=== PATIENT | female | born 1980 | race American Indian/Alaskan Native ===

== ENCOUNTER 2018-07-23 13:38 | Emergency (ER) | payer BC ==
[2018-07-23 13:43] VITALS: RESP 18; BMI 31.1
--- NOTE | 2018-07-23 13:56 | ED PDOC ---
Arrival/HPI - General Chief Complaint: Headache Historian: Patient, Other (Boyfriend) - History of Present Illness Time/Duration: Other (This morning) Symptom Course: Unchanged Quality: Aching, Pressure Severity Level: Severe Activities at Onset: Sleeping Associated Symptoms (Text): 07/23/18 13:54 Patient woke up from sleep this morning complaining of a bilateral frontal headache along with nausea and numbness in her right index middle and ring finger. Head trauma. No neck pain. There is photophobia and nausea. No weakness. She has never experienced this previously. No cough congestion or URI. No abdominal pain vomiting or diarrhea. No chest pain or palpitations. She took 2 Tylenol with no improvement. Family/Social History - Physician Review Nursing Documentation Reviewed: Yes Family/Social History: Unknown Family HX Smoking Status: Never Smoked Hx Alcohol Use: No Hx Substance Use: Yes (Marijuana) Allergies/Home Meds Allergies/Adverse Reactions: Allergies No Known Allergies Allergy (Verified 07/23/18 13:48) Home Medications: Home Meds Medication Instructions Recorded Confirmed Levothyroxine Sodium [Levoxyl] 25 mcg PO DAILY 07/23/18 07/23/18 Review of Systems - Physician Review All systems were reviewed & negative as marked: Yes - Review of Systems Constitutional: absent: Fatigue, Fevers Eyes: Photophobia. absent: Vision Changes, Eye Pain Respiratory: absent: SOB, Cough, Wheezing Cardiovascular: absent: Chest Pain, Palpitations, Syncope Gastrointestinal: Nausea. absent: Abdominal Pain, Vomiting Neurological: Headache. absent: Dizziness, Focal Weakness, Gait Changes, Speech Changes, Seizure Physical Exam Vital Signs Temp Pulse Resp BP Pulse Ox 07/23/18 13:42 98.2 F 74 18 118/89 98 Temperature: Afebrile Blood Pressure: Normal Pulse: Regular Respiratory Rate: Normal Appearance: Positive for: Well-Appearing, Non-Toxic, Uncomfortable Pain Distress: Moderate Mental Status: Positive for: Alert and Oriented X 3 - Systems Exam Head: Present: Atraumatic, Normocephalic Pupils: Present: PERRL Extroacular Muscles: Present: EOMI Ears: Present: NORMAL TM, Normal Canal. No: Erythema, TM Bulging Mouth: Present: Moist Mucous Membranes Pharnyx: No: ERYTHEMA, EXUDATE, TONSILS ENLARGED Neck: Present: Normal Range of Motion. No: Meningeal Signs, MIDLINE TENDERNESS, Paraspinal Tenderness Respiratory/Chest: Present: Clear to Auscultation, Good Air Exchange. No: Respi ratory Distress, Accessory Muscle Use Cardiovascular: Present: Regular Rate and Rhythm, Normal S1, S2. No: Murmurs Abdomen: No: Tenderness, Distention, Peritoneal Signs, Rebound, Guarding Upper Extremity: Present: Normal Inspection. No: Cyanosis, Edema Lower Extremity: Present: Normal Inspection. No: Edema Neurological: Present: GCS=15, CN II-XII Intact, Speech Normal, Motor Func Grossly Intact, Normal Sensory Function, Normal Cerebellar Funct, Gait Normal Skin: Present: Warm, Dry, Normal Color. No: Rashes Psychiatric: Present: Alert, Oriented x 3, Normal Insight, Normal Concentration Medical Decision Making ED Course and Treatment: 07/23/18 15:55 Symptoms markedly improved. We'll discharge home accompanied by her boyfriend to follow-up with PMD. Follow up in ER as needed. - RAD Interpretation Radiology Orders: CT scan of the head as read by the radiologist shows no acute findings. Disaster Director: Radiologist Disposition/Present on Arrival - Present on Arrival Any Indicators Present on Arrival: No History of DVT/PE: No History of Uncontrolled Diabetes: No Urinary Catheter: No History of Decub. Ulcer: No - Disposition Have Diagnosis and Disposition been Completed?: Yes Diagnosis: Headache Disposition: HOME/ ROUTINE Disposition Time: 15:56 Patient Plan: Discharge Condition: IMPROVED Discharge Instructions (ExitCare): Headache, Adult Prescriptions: Naproxen [Naprosyn] 500 mg PO BID #14 tab Ondansetron ODT [Zofran ODT] 4 mg PO Q6 #20 odt Forms: [employer] ([place]), WORK NOTE
[2018-07-23 14:21] LABS: URINE APPEARANCE CLEAR (CLEAR); URINE BILIRUBIN NEGATIVE (NEGATIVE); URINE BLOOD SMALL (NEGATIVE); URINE COLOR YELLOW (YELLOW); URINE GLUCOSE (UA) NEGATIVE (NEGATIVE); URINE LEUKOCYTE ESTERASE NEGATIVE Leu/uL (NEGATIVE); URINE PROTEIN NEGATIVE mg/dL (<30 mg/dL); URINE UROBILINOGEN 0.2 E.U./dL (<1 E.U./dL)
[2018-07-23 14:28] LABS: URINE RBC 0 - 2 /hpf (0-2)
[2018-07-23 14:29] LABS: URINE BACTERIA SMALL (NEG)
[2018-07-23 14:38] LABS: BARBITURATES, UR NEGATIVE (NEGATIVE); BENZODIAZEPINES, UR NEGATIVE (NEGATIVE); OPIATES, UR NEGATIVE (NEGATIVE); PHENCYCLIDINE, UR NEGATIVE (NEGATIVE)
[2018-07-23 14:48] LABS: BASO # 0.02 K/mm3 (0.0-2.0); BASO % 0.3 % (0.0-3.0); EOS # 0.1 (0.0-0.7); EOS % 1.9 % (1.5-5.0); GRAN # 5.17 (1.4-6.5); GRAN % 81.8 % (50.0-68.0); HEMOGLOBIN 12.2 g/dL (12.0-16.0); LYMPH # 0.7 (1.2-3.4); LYMPH % 10.3 % (22.0-35.0); MEAN CELL VOLUME 91.3 fl (80.0-105.0); MEAN CORPUSCULAR HEMOGLOBIN 29.5 pg (25.0-35.0); MEAN CORPUSCULAR HGB CONC 32.3 g/dl (31.0-37.0); MEAN PLATELET VOLUME 9.7 fl (7.0-11.0); MONO # 0.4 (0.1-0.6); MONO % 5.7 % (1.0-6.0); RBC 4.14 10^6/uL (3.5-6.1); RED CELL DISTRIBUTION WIDTH 12.2 % (11.5-14.5); WHITE BLOOD COUNT 6.3 10^3/uL (4.5-11.0)
[2018-07-23 14:53] LABS: ALB/GLOB RATIO 1.3 (1.1-1.8); ALBUMIN 4.2 g/dL (3.0-4.8); ALT/SGPT 33 U/L (7-56); AST/SGOT 22 U/L (14-36); BLOOD UREA NITROGEN 12 mg/dL (7-21); GFR NON-AFRICAN AMERICAN > 60
--- NOTE | 2018-07-23 15:50 | CT ---
Date of service: 07/23/2018 PROCEDURE: CT HEAD WITHOUT CONTRAST. HISTORY: MILES COMPARISON: Prior study available for comparison. TECHNIQUE: Axial computed tomography images were obtained through the head/brain without intravenous contrast. Radiation dose: Total exam DLP = 807.58 mGy-cm. This CT exam was performed using one or more of the following dose reduction techniques: Automated exposure control, adjustment of the mA and/or kV according to patient size, and/or use of iterative reconstruction technique. FINDINGS: HEMORRHAGE: No acute parenchymal, subarachnoid or extra-axial hemorrhage. BRAIN: No mass effect or edema. No atrophy or chronic microvascular ischemic changes. VENTRICLES: Unremarkable. No hydrocephalus. CALVARIUM: Unremarkable. PARANASAL SINUSES: Unremarkable as visualized. No significant inflammatory changes. MASTOID AIR CELLS: Unremarkable as visualized. No inflammatory changes. OTHER FINDINGS: None. IMPRESSION: No acute intracranial hemorrhage. The the
[2018-07-23 16:00] VITALS: BP 124/78; TEMP 98.1; O2SAT 100
[2018-07-23 16:06] VITALS: PULSE 71
== END 2018-07-23 16:01 | disposition home or self-care (01) ==
LOC: ED 13:38
DX: R51 Headache (principal)
CPT/HCPCS: 70450; 80053; 81001; 85025; 85651; 96374; 96375; 99285; G0480; J1885; J2405